=== PATIENT | female | born 2000 | race Hispanic/Latino ===

== ENCOUNTER 2020-01-13 22:55 | Outpatient (CLI) | payer OTHER ==
[~2020-01-13] VITALS: Ht 154.9 cm; Wt 64.7 kg
[2020-01-13 23:29] VITALS: BP 108/61
[2020-01-14] MEDS ORDERED: LR 800 ML IV SCH
[2020-01-14 00:45] LABS: APPEARANCE, URINE CLEAR (CLEAR); BACTERIA, URINE AUTO NEGATIVE (NEGATIVE); BILIRUBIN, URINE AUTO NEGATIVE (NEGATIVE); BLOOD, URINE BLOOD NEGATIVE (NEGATIVE); COLOR, URINE YELLOW (YELLOW); GLUCOSE, URINE (UA) AUTO 1+ mg/dL (NEGATIVE); KETONE, URINE AUTO NEGATIVE (NEGATIVE); LEUKOCYTE ESTERASE, URINE AUTO NEGATIVE (NEGATIVE); MUCUS, URINE SMALL (NEGATIVE); NITRITE, URINE AUTO NEGATIVE (NEGATIVE); PROTEIN, URINE AUTO NEGATIVE (NEGATIVE); RBC, URINE AUTO 0 /HPF (0-3); SPECIFIC GRAVITY URINE AUTO 1.019 (1.002-1.035); SQUAMOUS EPITHELIAL CELL UR AU 1 /HPF (0-6); UROBILINOGEN, URINE AUTO 0.2 mg/dL (0.0-2.0); WBC, URINE AUTO 1 /HPF (0-3)
[2020-01-14 01:41] VITALS: BP 107/62
[2020-01-14 02:59] VITALS: BP 105/62
--- NOTE | 2020-02-27 11:05 | HPE ---
DATE OF ADMISSION: 01/14/2020. ADMITTING DIAGNOSIS: HISTORY OF PRESENT ILLNESS: This lady is a 19-year-old, 1, para 0, LMP 04/30/2019, EDC 02/04/2020, at 37 weeks gestation, history of contractions, no loss of fluid or discharge. Risk factors: GBS positive, RH negative. LABORATORY VALUES: A negative. HIV negative. Hepatitis negative. RPR negative. Rubella immune. Varicella nonimmune. Pap shows LGSIL Urine was E. Coli. Gonorrhea and Chlamydia were negative. One-hour glucose 81. GBS positive. PHYSICAL EXAMINATION: She is in no distress. Fundal height 37, vertex OA, -3, soft, posterior, 1 cm, with no loss of fluid or discharge. Category 1 strip with the occasional contraction. Urine is 1019, pH 6, +1 glucose. Blood pressure 108/61, respirations 16, pulse 82, temperature 98.3. PLAN: Our plan of management is to hydrate the patient, discharge with precautions. Instructions were given. Appointment at [facility] with be at 38 weeks. Patient was discharged undelivered. All questions were answered; 20 minute discussion. MTDD
== END 2020-01-14 01:42 | disposition home or self-care (01) ==
LOC: M LDO 22:55
PROVIDERS: ATTEND Obstetrics & Gynecology
DX: O26.893 Other specified pregnancy related conditions, third trimester (principal); Z3A.37 37 weeks gestation of pregnancy
CPT/HCPCS: 59025; 81001; G0378; G0463

== ENCOUNTER 2020-01-20 19:18 | Outpatient (CLI) | payer OTHER ==
[~2020-01-20] VITALS: Ht 154.9 cm; Wt 65.8 kg
[2020-01-20 19:43] VITALS: BP 119/71
[2020-01-20 20:39] VITALS: BP 110/61
--- NOTE | 2020-02-21 14:20 | HPE ---
DATE OF ADMISSION: 01/20/2020 HISTORY OF PRESENT ILLNESS: 19-year-old 1, para 0, last menstrual period (LMP) 04/30/2019, estimated date of confinement (EDC) 02/04/2020 with previous spontaneous rupture of membranes at 37 3/7 weeks of gestation. No contractions, no vaginal bleeding. Risk factors: She is Rh negative, varicella nonimmune, group B strep (GBS) positive. LABORATORY DATA: A negative, HIV negative, hepatitis negative, RPR negative, rubella immune, varicella nonimmune. Pap showed LGSIL. Urine was E. coli. Gonorrhea and chlamydia were negative. One-hour glucose was 81. Group B strep (GBS) positive. Blood pressure on admission was 119/71, respirations 18, pulse 80, temperature is 97.5. Urine is 1.015, pH 6 and negative. PHYSICAL EXAMINATION: In no distress. Category 1 strip. Sterile speculum examination: Moderate amount of discharge, clear. Nitrazine negative. BV negative. Fern negative. Yeast was negative. 2 cm posterior dilated. Ultrasound showed an SAMREEN of 10.19, smallest pocket was 2.18. There was spontaneous movement of limbs and spontaneous respirations. ASSESSMENT AND PLAN: The patient does not have ruptured membranes, was discharged undelivered with precautions to follow up in the office with the appropriate interval. SOLOMOND
== END 2020-01-20 20:45 | disposition home or self-care (01) ==
LOC: M LDO 19:18
PROVIDERS: ATTEND Obstetrics & Gynecology
DX: O26.893 Other specified pregnancy related conditions, third trimester (principal); Z3A.37 37 weeks gestation of pregnancy
CPT/HCPCS: 59025; 76815; G0378; G0463

== ENCOUNTER 2020-01-27 16:15 | Outpatient (CLI) | payer OTHER ==
[~2020-01-27] VITALS: Ht 154.9 cm; Wt 66.3 kg
[2020-01-27] MEDS ORDERED: PRENTAB9 PO (16:24)
[2020-01-27 16:30] VITALS: BP 123/74
== END 2020-01-27 18:50 | disposition home or self-care (01) ==
LOC: M LDO 16:15
PROVIDERS: ATTEND Obstetrics & Gynecology
DX: O47.1 False labor at or after 37 completed weeks of gestation (principal); Z3A.38 38 weeks gestation of pregnancy
CPT/HCPCS: 59025; G0378; G0463

== ENCOUNTER 2020-01-29 06:41 | Outpatient (CLI) | payer OTHER ==
[~2020-01-29] VITALS: Ht 154.9 cm; Wt 65.2 kg
[~2020-01-29 06:41] MED LIST: PRENTAB9 PO
[2020-01-29 07:18] VITALS: BP 113/72
== END 2020-01-29 08:05 | disposition home or self-care (01) ==
LOC: M LDO 06:41
PROVIDERS: ATTEND Registered Nurse
DX: O47.1 False labor at or after 37 completed weeks of gestation (principal); Z3A.39 39 weeks gestation of pregnancy
CPT/HCPCS: 59025; G0378; G0463

== ENCOUNTER 2020-01-31 00:36 | Inpatient (IN) | payer OTHER ==
[~2020-01-31] VITALS: Ht 154.9 cm; Wt 64.5 kg
[2020-01-31] MEDS ORDERED: MAPA500T2 PO (01:17)
[2020-01-31] MEDS ORDERED: IRON65TA2 PO (01:17)
--- NOTE | 2020-01-31 01:58 | HPEPDOC ---
Obstetrical History & Physical General Date of Admission History of Present Illness 19yo at 39+3 by LMP and 8wk US presents for labor. She denied VB, LOF, decreased FM. She has painful contractions that started yesterday but in the last few hours became intolerable. 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 (last pap LSIL) Past Medical History Medical History denied Surgical History: Appendectomy Family History Significant Family History: No pertinent family hx Social History Family situation: Spouse/partner home Psychosocial History: No pertinent psych hx * Smoker: non-smoker Alcohol: Denies Drugs: denies Imunizations Tdap status: current Allergies Coded Allergies: No Known Allergies (Unverified , 01/13/20) Medications Scheduled Acetaminophen (Mapap) 500 Mg Tablet, 1,000 MG PO ONCE for Pain Ferrous Sulfate (Iron) 325 Mg Tablet, 1 TAB PO DAILY No.137/Iron/Folic Acd ( Vitamin Tablet) 1 Each Tablet, 1 TAB PO DAILY Physical Examination Physical Examination GENERAL: Alert and oriented times three. BREAST: . ABDOMEN: Gravid and non-tender to touch. FETUS: Is vertex (VTX) by sterile vaginal examination (SVE), fetus is vertex (VTX) by Ben. HEART RATE: Regular rate and rhythm. LUNGS: Clear to auscultation (CTA). EXTREMITIES: No edema. No clonus. Deep tendon reflexes (DTRs) + . Laboratory Data Urine Culture: Escherichia (E.) Coli ( ) Pertinent Laboratoy Data Blood Type: A- RBC Antibody Screen: Negative HIV: Negative Hepatitis B: Negative Rapid Plasma Reagin: Nonreactive Rubella: Immune Varicella: Nonreactive Chlamydia/Gonorrhea: Negative Group B Streptococcus: Positive Cystic Fibrosis: Negative Glucose Tolerance Test: 81 Anatomy Ultrasound Placenta Location: Fundal Normal Anatomy: Yes (1.5cm placenta cyst, stable on f/u scan) Placenta Previa: No Steroid Therapy Steroid Therapy: No Vaginal Examination Dilation: 5 cm Effacement: 90% Station: -2 Cervical Consistency: Soft Cervical Position: Middle Presentation: Cephalic presentation (by US) Assessment Heart Rate (FHR): 125 Variability: Moderate Accelerations: Positive Decelerations: None Tocometer Contractions: Yes Frequency: regular Multi-drug resistant Organism: No history of MDRO Assessment/Plan Assessment 19yo at 39+3 by LMP and 8wk US presents for labor progressing from 4/90/-1 to 5/90/-1 in triage with BBOW. CAT I tracing, reactive, VS normal. 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 Diet: clears Group B Streptococcus (GBS) positive, PCN ordered Labs and intravenous (IV) per unit protocol. Counseled on Pitocin and induction of labor (IOL) if indicated, will proceed with expectant management at this time Saline lock IV Anticipate C-S as appropriate. Educated on r/b/a of labor. delivery, , and operative delivery Plan for cytology in 1y given LSIL pap in JUL 2019 Plan for rhogam KAYE JONES DO Jan 31, 2020 01:58
[2020-01-31] MEDS: PENICILLIN G POTASSIUM IV 5 MU in D5W MINI-BAG PLUS 100 ML IV STA ×3 (03:27→04:04)
[2020-01-31 03:52] LABS: HEMOGLOBIN 12.5 g/dl (12.0-15.5); MEAN CORPUSCULAR HEMOGLOBIN 30.2 pg (27.0-33.0); MEAN CORPUSCULAR HGB CONC 33.8 g/dl (32.0-36.5); MEAN CORPUSCULAR VOLUME 89.4 fl (80.0-96.0); PLATELET COUNT, AUTOMATED 236 10^3/uL (150-450); RED BLOOD COUNT 4.14 10^6/uL (4.00-5.40); WHITE BLOOD COUNT 10.1 10^3/uL (4.0-10.0)
[2020-01-31] MEDS ORDERED: LACTATED RINGER'S 1000 ML IV STA (04:14)
[2020-01-31] MEDS: LR 1,000 ML IV SCH ×3 (04:47→15:39)
[2020-01-31] MEDS ORDERED: FENTANYL 2MCG/ML ROPIVACAINE 0.2% IN 0.9% NACL 100ML IVBAG As Ordered ONE (04:54)
[2020-01-31] MEDS ORDERED: NALOXONE INJ 0.4MG/1ML VIAL (J2310 PER 1MG) IV PRN (05:15)
[2020-01-31] MEDS ORDERED: diphenhydrAMINE 50MG/ML VIAL (J1200) IV PRN (05:15)
[2020-01-31] MEDS ORDERED: ePHEDrine SULFATE 25 MG/5 ML(5MG/ML) SYRINGE IV PRN (05:15)
[2020-01-31] MEDS ORDERED: EPIDURAL COMMENT XX SCH (05:15)
[2020-01-31] MEDS ORDERED: ONDANSETRON 4MG/2ML VIAL IV PRN (05:15)
[2020-01-31] MEDS ORDERED: LACTATED RINGER'S 1000 ML IV PRN (05:15)
[2020-01-31] MEDS ORDERED: REFRIGERATOR IV KEYS XX PRN (05:15)
[2020-01-31] MEDS ORDERED: EPIDURAL/PCA KEYS XX PRN (05:15)
[2020-01-31] MEDS: FENTANYL/ROPIVACAINE/NACL BAG 100 ML EPIDURAL SCH ×2 (05:27→14:13)
[2020-01-31 07:30] VITALS: BP 104/54
[2020-01-31] MEDS: PENICILLIN G POTASSIUM IV 2.5 MU in IV 1 EA IV SCH ×4 (08:10→20:32)
[2020-01-31] MEDS ORDERED: LR 1,000 ML IV SCH (08:41)
[2020-01-31] MEDS: OXYTOCIN DRIP 30 UNITS in IV 1 EA IV SCH ×2 (10:53→11:01)
[2020-01-31 11:30] VITALS: BP 105/57
--- NOTE | 2020-01-31 14:44 | IPNPDOC ---
Obstetrical Progress Note Date of Service Jan 31, 2020 Subjective Comfortable after epidural. Pitocin at 10mU for labor augmentation Objective Vital Signs Date Time Temp Pulse Resp B/P (MAP) Pulse Ox O2 Delivery O2 Flow Rate FiO2 01/31/20 11:30 97.4 81 18 105/57 (73) Room Air Assessment Variability: Moderate Accelerations: Positive Heart Rate Tracing: Category I Tocometer Contractions: Yes Frequency: regular Sterile Vaginal Examination Dilation: 6 cm Effacement (%): 90% Station: -1, 0 (AROM clear) Assessment and Plan Age: 19 : 1 Status: Reassuring Anticipate: Vaginal Delivery ABRAM CORTEZ MD. Jan 31, 2020 14:44
[2020-01-31 15:28] VITALS: BP 103/56
[2020-01-31 15:40] VITALS: BP 103/56
[2020-01-31] MEDS ORDERED: MEASLES,MUMPS,RUBELLA VACCINE INJ (MMR-II) (90707) SC SCH (22:30)
[2020-01-31] MEDS ORDERED: ACETAMINOPHEN 500 MG TAB PO PRN (22:30)
[2020-01-31] MEDS ORDERED: ACETAMINOPHEN TAB 650MG DOSE (2X325MG) PO PRN (22:30)
[2020-01-31] MEDS ORDERED: METHYLERGONOVINE MALEATE 0.2 MG TAB PO PRN (22:30)
[2020-01-31] MEDS ORDERED: DIBUCAINE 1% OINTMENT 30GM TOP PRN (22:30)
[2020-01-31] MEDS ORDERED: DOCUSATE SODIUM 100 MG CAP PO PRN (22:30)
[2020-01-31] MEDS ORDERED: IBUPROFEN 600MG TAB PO PRN (22:30)
[2020-01-31] MEDS ORDERED: RHOGAM 300 MCG (1500 IU) INJ (J2790) IM SCH (22:30)
[2020-01-31] MEDS ORDERED: OXYTOCIN DRIP 30 UNITS in IV 1 EA IV SCH (22:30)
[2020-01-31] MEDS ORDERED: MOM 30ML SUSPENSION UDC PO PRN (22:30)
[2020-01-31] MEDS ORDERED: ANUSOL HC CREAM 30GM TOP PRN (22:30)
--- NOTE | 2020-01-31 23:32 | DNPDOC ---
[facility] Delivery Note Delivery Note DATE OF DELIVERY: 01/31/2020 TIME OF : 2203 GENDER: Male. APGARS: 8 and 9. WEIGHT:, 3500 grams or 7 pounds 11 ounces. LACERATIONS:. None ANESTHESIA: Epidural. COUNTS: 5 laparotomy sponges accounted for prior to after delivery. DELIVERY NOTE: On 01/31/20 at 2203, Mrs Gordon bates 19yo G1, now P1 had a spontaneous vaginal delivery of viable male , Apgars 8 and 9 and weight was 3500 g or 7 lbs. 11 oz. Head was delivered occiput anterior (OA), followed by delivery of the shoulders and corpus. Infant was handed to mom with a good cry. Cord was clamped times two and was cut by the father of baby under my direction. Placenta was then drained and delivered grossly intact. A premixed bag of 500 mL of normal saline with 30 units of Pitocin was then bolused along with uterine massage until the uterus was firm. On inspection,cervix, vagina, perineum was grossly intact and hemostatic. Mom and baby in recovery on stable condition. The couple decided son, RezaABRAM Sims MD. Jan 31, 2020 23:32
[2020-01-31 23:45] VITALS: BP 121/75
[2020-02-01] MEDS: IBUPROFEN 800 MG TAB PO PRN ×2 (00:35→10:18)
[2020-02-01 06:00] VITALS: BP 103/55
--- NOTE | 2020-02-01 07:25 | IPNPDOC ---
Progress Note Date of Service: Feb 01, 2020 Day#: 1 Progress Note SUBJECT: This morning, she is doing well without complaints. Ambulating, voiding and pain is well-controlled. Reports minimal lochia. +breast feeding OBJECTIVE: VSS and AF Alert and oriented times three. Abdomen: Fundus firm at U-2. Soft, NTTP. Ext: neg calf tenderness. ASSESSMENT: day #1 status post normal spontaneous vaginal delivery. Recovering in stable condition. PLAN: 1. Continue routine care 2. Discharge plans for tomorrow VS, I&O, 24H, Fishbone Vital Signs/I&O Vital Signs Date Time Temp Pulse Resp B/P (MAP) Pulse Ox O2 Delivery O2 Flow Rate FiO2 02/01/20 06:00 97.5 66 16 103/55 (71) 96 Room Air I&O- Last 24 Hours up to 6 AM 02/01/20 06:01 Intake Total 4045.6 ml Output Total 2200 ml Balance 1845.6 ml ABRAM CORTEZ MD. Feb 01, 2020 07:25
[2020-02-01] MEDS: PRENATAL VITAMINS CHEWABLE TABLET PO SCH (10:18)
[2020-02-01 18:08] VITALS: BP 95/53
[2020-02-02 06:00] VITALS: BP 110/74
[2020-02-02] MEDS: IBUPROFEN 800 MG TAB PO PRN (06:06)
[2020-02-02] MEDS ORDERED: DOCU100C16 PO (08:13)
[2020-02-02] MEDS ORDERED: DIBU10OI TOP (08:13)
[2020-02-02] MEDS: PRENATAL VITAMINS CHEWABLE TABLET PO SCH (11:18)
== END 2020-02-02 14:50 | disposition home or self-care (01) | DRG 807 ==
LOC: M LDO 00:36 → M LDI 03:27 → M OBS 23:36
PROVIDERS: ADMIT Obstetrics & Gynecology; ATTEND Obstetrics & Gynecology
PROC: 10E0XZZ Delivery of Products of Conception, External Approach (ICD-10-PCS; principal; 2020-01-31)
DX: O99.824 Streptococcus B carrier state complicating childbirth (principal); Z37.0 Single live birth; Z3A.39 39 weeks gestation of pregnancy